=== PATIENT | male | born 2000 | race Caucasian/White ===

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

== ENCOUNTER 2020-05-17 02:23 | Emergency (ER) | payer SELFPAY ==
[~2020-05-17] VITALS: Ht 172.7 cm; Wt 67.6 kg
[2020-05-17 02:31] VITALS: BP 124/52; Ht 172.7 cm; Wt 67.6 kg
== END 2020-05-17 04:51 | disposition home or self-care (01) ==
LOC: ED 02:23
DX: N20.0 Calculus of kidney (principal); N13.39 Other hydronephrosis
CPT/HCPCS: J1885; Q0162